=== PATIENT | female | born 1980 ===

== ENCOUNTER 2018-11-30 12:47 | Emergency (ER) | payer OTHER ==
[~2018-11-30] VITALS: Ht 167.6 cm; Wt 62.1 kg
[2018-11-30 12:50] VITALS: BP 126/84
--- NOTE | 2018-11-30 12:50 | NUR ---
ED Nurse Note: Patient ambulated in to ER from home due to Lt side of body pain 10/21. Patient alert and oriented x4 and ambulatory. Skin clean and intact. Calm and cooperative. No acute distress noted at this time.
[2018-11-30 12:56] VITALS: BP 112/73
[2018-11-30] MEDS ORDERED: IBUPROFEN200 M2 ORAL (13:03)
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
[2018-11-30] MEDS ORDERED: ROBAXIN500 MG PO (13:23)
[2018-11-30] MEDS ORDERED: IBU800 MG PO (13:23)
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
== END 2018-11-30 13:32 | disposition home or self-care (01) ==
LOC: EMR 13:32
DX: M54.32 Sciatica, left side (principal); S16.1XXA Strain of muscle, fascia and tendon at neck level, initial encounter; F17.200 Nicotine dependence, unspecified, uncomplicated; V43.92XA Unspecified car occupant injured in collision with other type car in traffic accident, initial encounter; Y92.410 Unspecified street and highway as the place of occurrence of the external cause
CPT/HCPCS: 99282